=== PATIENT | female | born 1965 ===

== ENCOUNTER 2017-12-26 08:55 | Day surgery (SDC) | payer OTHER ==
--- NOTE | 2017-12-15 19:23 | HP ---
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 CHIEF COMPLAINT: Right hand numbness and tingling, right long, ring, and small fingers triggering. 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 She states her small and ring fingers on both hands are fine all of the time, but she has numbness and pain in the median nerve distribution in both hands. It is especially bad at night. A nerve conduction study showed that she has severe carpal tunnel syndrome on the right. She is also complaining of stiffness and occasional locking in the right hand fingers, primarily the long, ring, and small fingers. She has difficulty making a tightly closed fist with the right hand. She has been able to continue working, but she is interested in pursuing surgical intervention for these problems. PAST MEDICAL HISTORY: Marciano's thyroiditis. PAST SURGICAL HISTORY: 1. Hysterectomy in 1996. 2. . 3. Appendectomy. CURRENT MEDICATIONS: Levothyroxine sodium 88 mcg daily. ALLERGIES: No known drug allergies. FAMILY MEDICAL HISTORY: Heart disease. 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 She is a former smoker, she quit approximately 8 years ago. Prior to that, she smoked a pack per day for 20 years. She denies recreational drug use. She does drink alcohol on regular occasions. REVIEW OF SYSTEMS: Negative for general, cephalic, cardiovascular, respiratory , GI, , other musculoskeletal, integumentary, endocrine, neurologic, and hematologic symptoms. Infectious Disease is negative for history of MRSA, hepatitis C, and HIV. PHYSICAL EXAMINATION GENERAL: Well-developed, well-nourished 52-year-old female, in no acute distress. VITAL SIGNS: Height 5 feet 2 inches, weight 159 pounds. Blood pressure 122/80 , pulse rate 64. HEENT: Normocephalic, atraumatic. Pupils are equal, round, and reactive to light and accommodation. Extraocular movements are intact. Throat is clear. NECK: Supple. No palpable lymph nodes. PULMONARY: Lungs are clear to auscultation bilaterally. No wheezes, rales, or rhonchi. CARDIOVASCULAR: Regular rate and rhythm. S1, S2. No murmurs, rubs, or gallops. No edema. ABDOMEN: Positive bowel sounds. Soft, nontender. NEUROLOGICAL: Alert and oriented x3. Cranial nerves II through XII are intact. MUSCULOSKELETAL: On exam of her right hand, she has swelling in the fingers of her right hand and she has trouble making a full fist on the right. She has tenderness at the A1 pulleys of the long, ring, and small fingers. She can fully extend all of the fingers and has good motion in her wrist. She has a positive Tinel sign at the median nerve at the wrist, negative Tinel's at the ulnar nerve at the elbow. She has weakness with thumb abduction and finger abduction. IMAGING STUDIES: EMG nerve conduction study shows moderate to severe carpal tunnel syndrome on the right. IMPRESSION: Right carpal tunnel syndrome, trigger fingers of the right long, ring, and small fingers. PLAN: The patient is scheduled to undergo a right wrist carpal tunnel release, right long, ring, and small finger trigger finger releases with Dr. Monique on . She will return to the office 10 days postop for followup and suture removal. A prescription for Ultracet was e-scribed to the patient's pharmacy for postoperative pain management. STAR CARR [id number]/[facility] #: [id number] RADHA
[~2017-12-26 08:55] MED LIST: Buffered Lidocaine 0.9% SYRIN* 5 ML/SYR SYRINGE INTRADERM ONE; Lidocaine 1% INJ* 10 MG/ML 30 ML SDV ONE
[2017-12-26] MEDS ORDERED: Midazolam* 1 MG/ML 2 ML VIAL (2 MG) ONE (09:40)
[2017-12-26] MEDS ORDERED: fentaNYL* 50 MCG/ML 2 ML VIAL (100 MCG VIAL) ONE (09:40)
[2017-12-26] MEDS ORDERED: Naloxone* 0.4 MG/ML 1 ML VIAL IV PRN (10:06)
[2017-12-26 10:46] VITALS: BP 110/68
[2017-12-26] MEDS ORDERED: Lidocaine 2% PF * 5 ML VIAL ONE (11:08)
[2017-12-26] MEDS ORDERED: Propofol* 10 MG/ML 20 ML BTL IV PUSH ONE (11:08)
--- NOTE | 2017-12-27 04:32 | OP ---
DATE OF OPERATION: 12/26/17 [facility] DATE OF : 61 SURGEON: Magnolia Monique MD NEONATAL NURSE: STAR Horne ANESTHESIA: Local MAC. PRE-OP DIAGNOSES: Right carpal tunnel syndrome and trigger fingers of the index , middle, ring, and small fingers. POST-OP DIAGNOSES: Right carpal tunnel syndrome and trigger fingers of the index, middle, ring, and small fingers. OPERATIVE PROCEDURE: Right carpal tunnel release and trigger release of the index, long, ring, and small fingers on the right hand. INDICATIONS: Sury is a 52-year-old woman who has painful locking of all of her fingers except her thumb and has numbness and tingling in the right hand as well in the median nerve distribution. She presents for right carpal tunnel release and trigger releases of the index, middle, ring, and small finger. ESTIMATED BLOOD LOSS: Zero. TOURNIQUET TIME: About 20 minutes. DESCRIPTION OF PROCEDURE: The patient was brought to the operating room, was given a sedation anesthetic and a total 20 cc of 1% plain lidocaine in the palm of the right hand. The skin of her right hand and forearm was prepped and draped in the usual sterile fashion. The hand and forearm were exsanguinated and the tourniquet elevated to 250 mmHg. A transverse incision was made centered between the A1 pulleys of the index and long fingers. We carefully dissected through the subcutaneous tissue down to these two pulleys. They were incised longitudinally completely releasing the flexor tendons, which were in good condition. The wound was irrigated and skin edges were reapproximated with 4-0 nylon suture. A second incision was made centered between the A1 pulleys of the ring and small fingers and we dissected bluntly through the subcutaneous tissue down to these two pulleys. These pulleys were incised longitudinally and the tendons completely released. There was abundant flexor tenosynovitis surrounding the small finger tendons and this was debrided. The wound was irrigated and skin edges were reapproximated with 4-0 nylon suture. Next, a longitudinal incision was made in the palm in line with the ring finger in between the hypothenar and thenar eminence. We dissected sharply through the subcutaneous tissue down to the transverse carpal ligament. The ligament was divided sharply with a knife and then more proximally with the scissors. The nerve was dissected free from the surrounding tissue and there was an area of moderate compression at the mid portion of the ligament. The wound was irrigated and skin edges were reapproximated with 4-0 nylon suture. The wounds were dressed with Xeroform, 4x4, Webril, and an Barrington wrap. The patient tolerated the procedure well and was brought to the recovery room in good condition. [id number]/[facility] [place] #: [id number] RADHA
== END 2017-12-26 11:00 | disposition home or self-care (01) ==
LOC: OREAST 08:55
PROVIDERS: ATTEND Orthopaedic Surgery
DX: G56.01 Carpal tunnel syndrome, right upper limb (principal); M65.321 Trigger finger, right index finger; M65.331 Trigger finger, right middle finger; M65.341 Trigger finger, right ring finger; M65.351 Trigger finger, right little finger; E06.3 Autoimmune thyroiditis; Z87.891 Personal history of nicotine dependence
CPT/HCPCS: J2250; J2704; J3010

== ENCOUNTER 2018-04-24 07:51 | Day surgery (SDC) | payer OTHER ==
--- NOTE | 2018-04-15 14:46 | HP ---
AMENDED REPORT NOW INCLUDES DESIGNATED COSIGNER PREOPERATIVE HISTORY AND PHYSICAL: DATE OF SURGERY/ADMISSION: 04/24/18 DATE OF OFFICE VISIT/ENCOUNTER: 04/08/18 ATTENDING SURGEON: Magnolia Monique MD * (DICTATED BY STAR CARR) PROCEDURE: Left wrist carpal tunnel release; left index, long, ring, and small trigger finger releases. CHIEF COMPLAINT: Left hand numbness and tingling; left index, long, ring, and small finger triggering. 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 She also states that her index, long, ring, and small fingers have been triggering. As far as the numbness is concerned, it is in the median nerve distribution. She does not experience any numbness in the small finger. It is especially bad at night. She is also complaining of the triggering involving all fingers except her thumb. She has difficulty making a tightly closed fist with the left hand. She has been able to continue working, but is interested in pursuing surgical intervention for these problems. She recently underwent a right wrist carpal tunnel release and trigger finger releases on her right hand. She recovered well from those surgeries. PAST MEDICAL HISTORY: Marciano thyroiditis. PAST SURGICAL HISTORY: 1. Hysterectomy in 1996. 2. . 3. Appendectomy. 4. Right wrist carpal tunnel release. 5. Right long, ring, and small finger trigger releases. CURRENT MEDICATIONS: 1. Levothyroxine sodium 88 mcg daily. 2. Meloxicam 7.5 mg daily. ALLERGIES: No known drug allergies. FAMILY MEDICAL HISTORY: Heart disease. 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 She is a former smoker. She quit approximately 8 years ago. Prior to that she smoked a pack a day for 20 years. She denies recreational drug use. She drinks alcohol on regular occasion. REVIEW OF SYSTEMS: Negative for general, cephalic, cardiovascular, respiratory , GI, , other musculoskeletal, integumentary, endocrine, neurologic, and hematologic symptoms. Infectious Disease is negative for history of MRSA, hepatitis C, HIV. PHYSICAL EXAMINATION GENERAL: Well-developed, well-nourished 52-year-old female, in no acute distress. VITAL SIGNS: Height 5 feet 2 inches, weight 157 pounds. Blood pressure 118/68 , pulse rate 60. HEENT: Normocephalic, atraumatic. Pupils are equal, round, and reactive to light and accommodation. Extraocular movements are intact. Throat is clear. NECK: Supple. No palpable lymph nodes. PULMONARY: Lungs are clear to auscultation bilaterally. No wheezes, rales, or rhonchi. CARDIOVASCULAR: Regular rate and rhythm. S1, S2. No murmurs, rubs, or gallops. No edema. ABDOMEN: Positive bowel sounds, soft, nontender. NEUROLOGICAL: Alert and oriented x3. Cranial nerves II through XII are intact. MUSCULOSKELETAL: On exam of her left hand, she has no visible thenar eminence wasting, but decreased pain with some abduction. She has a positive Tinel sign at the median nerve and mild decrease in sensation in the median nerve distribution. She has tenderness to palpation along the A1 pulleys of the index , middle, ring, and pinky fingers. She is not able to close tightly into a fist. IMPRESSION: Left carpal tunnel syndrome; left index, long, ring, and small trigger fingers. PLAN: The patient is scheduled to undergo a left wrist carpal tunnel release and left index, long, ring, and small finger trigger releases with Dr. Monique on 04/24/18. She will return to the office 10 days postop for followup and suture removal. A prescription for Ultracet was e-scribed to the patient's pharmacy for postoperative pain management. STAR CARR [id number]/[facility] #: [id number] RADHA
[~2018-04-24 07:51] MED LIST changes: -Buffered Lidocaine 0.9% SYRIN* 5 ML/SYR SYRINGE INTRADERM ONE; +Buffered Lidocaine 1% SYRIN* 1 ML/SYRINGE INTRADERM ONE; +Lactated Ringers 1000 ML Bag* 1,000 ML IV SCH; -Lidocaine 1% INJ* 10 MG/ML 30 ML SDV ONE
[2018-04-24] MEDS ORDERED: Lidocaine 1% INJ* 10 MG/ML 30 ML SDV ONE ×2 (08:56→12:08)
[2018-04-24] MEDS ORDERED: HYDROcodone/ACETAMIN 5-325 MG* 1 TAB PO PRN ×2 (09:34)
[2018-04-24] MEDS ORDERED: fentaNYL* 50 MCG/ML 2 ML VIAL (100 MCG VIAL) IV PRN (09:34)
[2018-04-24] MEDS ORDERED: DiMENhydriNATE IV* 50 MG/ML VIAL IV PUSH PRN (09:34)
[2018-04-24] MEDS ORDERED: Ondansetron INJ* 2 MG/ML VIAL IV PRN (09:34)
[2018-04-24] MEDS ORDERED: Naloxone* 0.4 MG/ML 1 ML VIAL IV PRN (09:34)
[2018-04-24] MEDS ORDERED: PROCHLORPERAZINE INJ 5 MG/ML 2 ML VIAL IV PRN (09:34)
[2018-04-24] MEDS ORDERED: Acetaminophen TAB* 325 MG PO PRN (09:34)
[2018-04-24] MEDS ORDERED: fentaNYL* 50 MCG/ML 2 ML VIAL (100 MCG VIAL) ONE (10:41)
[2018-04-24] MEDS ORDERED: Midazolam* 1 MG/ML 2 ML VIAL (2 MG) ONE (10:41)
[2018-04-24] MEDS ORDERED: Ketorolac INJ* 30 MG/ML 1 ML VIAL ONE (11:30)
[2018-04-24] MEDS ORDERED: Propofol* 10 MG/ML 20 ML BTL ONE ×2 (11:30→11:47)
[2018-04-24] MEDS ORDERED: Lidocaine 2% PF * 5 ML VIAL ONE (11:30)
[2018-04-24 13:36] VITALS: BP 106/69
--- NOTE | 2018-04-24 14:22 | OP ---
DATE OF OPERATION: 04/24/18 [facility] DATE OF : 61 SURGEON: Magnolia Monique MD FARM MECHANIC: STAR Puentes ANESTHESIA: Local MAC. PRE-OP DIAGNOSES: 1. Left carpal tunnel syndrome. 2. Trigger finger of the index, long, ring, and small fingers. POST-OP DIAGNOSES: 1. Left carpal tunnel syndrome. 2. Trigger finger of the index, long, ring, and small fingers. OPERATIVE PROCEDURE: Left trigger finger release of the left index, long, ring , and small fingers and left carpal tunnel release. ESTIMATED BLOOD LOSS: Zero. TOURNIQUET TIME: About 15 minutes. INDICATIONS FOR PROCEDURE: Sury is a 52-year-old woman who has triggering and locking of all the fingers on her left hand except her thumb and also left carpal tunnel syndrome. She presents for release of the carpal tunnel as well as trigger finger release of the left index, middle, ring, and small fingers. DESCRIPTION OF PROCEDURE: The patient was brought to the operating room, was given a sedation anesthetic and a local infiltration total of 20 cc of 1% plain lidocaine in the palm of her left hand. Skin of her left hand and forearm was prepped and draped in the usual sterile fashion. The hand and forearm were exsanguinated and the tourniquet elevated to 250 mmHg. A transverse incision was made centered between the A1 pulleys of the index and middle fingers. We dissected bluntly through the subcutaneous tissue down to both A1 pulleys. They were incised longitudinally completely releasing the flexor tendons which were in good condition. A second incision was made centered between the A1 dariel of the ring and small fingers and we dissected bluntly through the subcutaneous tissue down to the A1 pulleys. These were released longitudinally completely releasing the tendons which were in good condition. Next, the longitudinal incision was made in the palm in line with the ring finger. We dissected through the subcutaneous tissue down to the transverse carpal ligament. The ligament was divided sharply with the knife and then more proximally with the scissors. The nerve was dissected free from the surrounding tissue and there was an area of moderate compression in the mid portion of the ligament. The wound was irrigated and the skin edges were reapproximated with 4-0 nylon suture. The wounds were dressed with Xeroform, 4x4, Webril, and an Barrington wrap. The patient tolerated the procedure well and was brought to the recovery room in good condition. [id number]/[facility] #: [id number] RADHA
== END 2018-04-24 13:52 | disposition home or self-care (01) ==
LOC: OREAST 07:51
PROVIDERS: ATTEND Orthopaedic Surgery
DX: G56.02 Carpal tunnel syndrome, left upper limb (principal); M65.322 Trigger finger, left index finger; M65.332 Trigger finger, left middle finger; M65.342 Trigger finger, left ring finger; M65.352 Trigger finger, left little finger; Z87.891 Personal history of nicotine dependence; E06.3 Autoimmune thyroiditis
CPT/HCPCS: J1885; J2250; J2704; J3010